=== PATIENT | female | born 1950 | race Caucasian/White ===

== ENCOUNTER 2019-11-16 16:32 | Outpatient (CLI) | payer MEDICARE, OTHER, SELFPAY ==
--- NOTE | ~2019-11-16 | CT_ITS ---
EXAMINATION: CT chest w con DATE: 11/16/2019 17:11 INDICATION: Lung cancer TECHNIQUE: Computed tomography (CT) of the chest was performed with 75 cc Omnipaque 350 intravenous c ontrast. The dose-length product was 139.51 mGy-cm. Automated exposure control and iterative reconstr uction technique were employed. COMPARISON: 05/2019 FINDINGS: There is atherosclerosis of the aorta without evidence for dissection. Heart size normal. N o significant pleural or pericardial effusion. No thoracic lymphadenopathy. There is emphysema. No en dobronchial lesions. Stable 6 x 5 mm left upper lobe nodule, image 35. Stable 5 mm left upper lobe no dule, image 44. Decreased size of left upper lobe nodule measuring 3 mm, image 74. There are reticulo nodular densities with tree-in-bud configuration in the left lower lobe. No new pulmonary nodules or masses. Mild thoracic spondylosis. IMPRESSION: 1. Stable-decreased size of left upper lobe nodules, likely treated malignancy. 2: Reticulonodular densities left lower lobe with tree-in-bud configuration, most likely infectious/i nflammatory. Reviewed, dictated and finalized at location A. LRY SALES REPRESENTATIVE IMPRESSION: 1. Stable-decreased size of left upper lobe nodules, likely treated malignancy. 2: Reticulonodular densities left lower lobe with tree-in-bud configuration, mo st likely infectious/inflammatory.
[2019-11-16 17:04] LABS: Blood Urea Nitrogen 21 mg/dL (8-26); Estimated Glomerular Filt Rate > 60
== END 2019-11-16 16:33 | disposition home or self-care (01) ==
PROVIDERS: PCP Family Medicine; Visit Provider Radiology Radiation Oncology
DX: C34.12 Malignant neoplasm of upper lobe, left bronchus or lung (principal); R91.8 Other nonspecific abnormal finding of lung field
CPT/HCPCS: 71260; Q9967

== ENCOUNTER 2019-11-27 14:21 | Outpatient (CLI) | payer MEDICARE, OTHER, SELFPAY ==
[2019-11-27 14:40] LABS: Basophils Percent Auto 0.2 % (0.2-1.2); Eosinophils Absolute Auto 0.2 K/mm3 (0-0.3); Eosinophils Percent Auto 1.2 % (0-4.4); Hemoglobin 11.2 g/dL (12.0-15.0); Immature Granulocyte Absolute 0.04 K/mm3 (0.00-0.031); Immature Granulocyte Percent A 0.3 % (0-0.5); Lymphocytes Absolute Auto 2.01 K/mm3 (0.9-3.2); Lymphocytes Percent Auto 16.1 % (18.3-44.2); Mean Corpuscular HGB Conc 31.1 g/dl (32-36); Mean Corpuscular Hemoglobin 29.6 pg (26-34); Mean Corpuscular Volume 95.2 fl (80-100); Mean Platelet Volume 9.1 fl (7.4-10.4); Monocytes Absolute Auto 0.8 K/mm3 (0.1-0.6); Monocytes Percent Auto 6.2 % (2.6-8.5); Neutrophils Absolute Auto 9.5 K/mm3 (1.3-6.7); Platelet Count Result 395 k/mm3 (150-375); Red Blood Count 3.78 M/mm3 (4.2-5.4); White Blood Count 12.5 K/mm3 (4.5-10.0)
[2019-11-27 14:44] LABS: Blood Urea Nitrogen 10 mg/dL (8-26); Carbon Dioxide 37 mmol/L (22-30); Chloride 96 mmol/L (98-109); Estimated Glomerular Filt Rate > 60; Glucose 109 mg/dL (70-105); Sodium 141 mmol/L (138-146)
[2019-11-27 16:29] LABS: CRP 1.3 mg/dL (<1.0)
[2019-11-27 16:34] LABS: Iron 55 ug/dL (37-170)
[2019-11-27 16:43] LABS: Percent Iron Saturation 19 % (20-50)
[2019-11-27 16:54] LABS: Erythrocyte Sedimentation Rate 79 mm/hr (0-20)
== END 2019-11-27 14:22 | disposition home or self-care (01) ==
PROVIDERS: Visit Provider Internal Medicine Hematology & Oncology
DX: C34.32 Malignant neoplasm of lower lobe, left bronchus or lung (principal)
CPT/HCPCS: 36415; 80048; 82607; 82728; 83540; 83550; 85025; 85652; 86140

== ENCOUNTER 2020-03-24 10:37 | Outpatient (CLI) | payer MEDICARE, OTHER, SELFPAY ==
--- NOTE | ~2020-03-24 | CT_ITS ---
EXAMINATION: CT chest w con EXAM DATE: 03/24/2020 11:07 INDICATION: Lung cancer left-sided. Follow-up. TECHNIQUE: Spiral CT of the chest following intravenous injection of 75 mL Omnipaque 350. Axial, cor onal and sagittal images were reviewed. Coronal maximum intensity pixel images of chest reviewed. T he dose-length product (DLP) for this examination was 137.96 mGy-cm. The exposure was tailored accor ding to patient size (auto mA exposure control), and iterative reconstruction (ASIR) was used as maricruz tional dose reduction technique. Comparison is made to prior examination from 11/16/2019, 05/24/2019. FINDINGS: There is moderate to severe centrilobular emphysema. Right upper lobe 6 and 5 mm nodules s table compared to 05/24/2019. There are no pleural or pericardial effusions. Tracheobronchial tree is patent. There is no mediastinal, hilar or axillary lymphadenopathy. There is no pneumothorax. Narrow cardiac silhouette from moderately hyperinflated lungs. Small thyroid nodules. There is mild coronary arterial calcification, arterial sclerosis. Upper abdomen is unremarkable. There is thora cic spondylosis without osteoblastic or osteolytic lesions identified. IMPRESSION: 1. Stable left upper lobe nodules. 2. Moderate to severe emphysema. 3. Moderate hyperinflation. Reviewed, dictated and finalized at location A.
[2020-03-24 10:59] LABS: Estimated Glomerular Filt Rate > 60
== END 2020-03-24 10:38 | disposition home or self-care (01) ==
LOC: ANHIMG 10:40
PROVIDERS: Visit Provider Internal Medicine Hematology & Oncology
DX: C34.32 Malignant neoplasm of lower lobe, left bronchus or lung (principal); R91.8 Other nonspecific abnormal finding of lung field; J43.9 Emphysema, unspecified
CPT/HCPCS: 36415; 71260; Q9967

== ENCOUNTER 2020-03-31 13:23 | Outpatient (CLI) | payer MEDICARE, OTHER, SELFPAY ==
[2020-03-31 13:44] LABS: Basophils Percent Auto 0.5 % (0.2-1.2); Eosinophils Absolute Auto 0.2 K/mm3 (0-0.3); Eosinophils Percent Auto 1.9 % (0-4.4); Hematocrit 38.5 % (37.0-47.0); Hemoglobin 12.1 g/dL (12.0-15.0); Immature Granulocyte Absolute 0.03 K/mm3 (0.00-0.031); Immature Granulocyte Percent A 0.4 % (0-0.5); Lymphocytes Absolute Auto 2.08 K/mm3 (0.9-3.2); Lymphocytes Percent Auto 24.4 % (18.3-44.2); Mean Corpuscular HGB Conc 31.4 g/dl (32-36); Mean Corpuscular Hemoglobin 29.1 pg (26-34); Mean Corpuscular Volume 92.5 fl (80-100); Mean Platelet Volume 9.7 fl (7.4-10.4); Monocytes Absolute Auto 0.6 K/mm3 (0.1-0.6); Monocytes Percent Auto 6.7 % (2.6-8.5); Neutrophils Absolute Auto 5.7 K/mm3 (1.3-6.7); Neutrophils Percent Auto 66.1 % (45.5-73.1); Platelet Count Result 302 k/mm3 (150-375); Red Blood Count 4.16 M/mm3 (4.2-5.4); Red Cell Distribution Width 13.6 % (11.5-14.5); White Blood Count 8.5 K/mm3 (4.5-10.0)
[2020-03-31 13:48] LABS: Blood Urea Nitrogen 10 mg/dL (8-26); Carbon Dioxide 34 mmol/L (22-30); Chloride 93 mmol/L (98-109); Estimated Glomerular Filt Rate > 60; Glucose 94 mg/dL (70-105); Potassium 4.3 mmol/L (3.5-4.9); Sodium 136 mmol/L (138-146)
[2020-03-31 16:39] LABS: Alanine Aminotransferase 18 U/L (4-35); Albumin Level 4.4 g/dL (3.5-5.1); Alkaline Phosphatase 107 U/L (38-126); Aspartate Amino Transferase 36 U/L (14-36); Bilirubin,Total 0.1 mg/dL (0.2-1.3); Blood Urea Nitrogen 12 mg/dL (7-17); Calcium 9.3 mg/dL (8.4-10.2); Carbon Dioxide 37 mmol/L (22-30); Chloride 93 mmol/L (98-107); Estimated Glomerular Filt Rate > 60; Glucose 96 mg/dL (65-105); Potassium 4.6 mmol/L (3.4-5.0); Sodium 134 mmol/L (137-145)
== END 2020-03-31 13:24 | disposition home or self-care (01) ==
PROVIDERS: Visit Provider Internal Medicine Hematology & Oncology
DX: C34.32 Malignant neoplasm of lower lobe, left bronchus or lung (principal)
CPT/HCPCS: 36415; 80048; 80053; 85025

== ENCOUNTER 2020-09-22 14:44 | Outpatient (CLI) | payer MEDICARE, OTHER, SELFPAY ==
--- NOTE | ~2020-09-22 | CT_ITS ---
EXAMINATION: CT chest w con DATE: 09/22/2020 15:05 INDICATION: Left lung cancer TECHNIQUE: Transaxial computed tomographic images of the chest were obtained after the administration of 75 cc of Omnipaque 350 intravenous contrast. The dose-length product (DLP) was 143.08 mGy-cm. Ite rative reconstruction was used. COMPARISON: 03/24/2020, 11/16/2019 FINDINGS: There is moderate emphysema. A stable 5 mm nodule is present in the left upper lobe on imag e 42. There is also a stable 6 mm nodule of the left upper lobe on image 35. No new pulmonary nodule is identified. There is no pleural effusion or pneumothorax. No pathologically enlarged thoracic lymp h nodes are identified. The heart size is normal. No pathologically enlarged thoracic lymph nodes are identified. The heart size is normal. There is mild thoracic spondylosis. IMPRESSION: 1. Stable left upper lobe nodules. Reviewed, dictated and finalized at location A. ECUTTER HAND
[2020-09-22 15:03] LABS: Estimated Glomerular Filt Rate > 60
== END 2020-09-22 14:45 | disposition home or self-care (01) ==
LOC: ANHIMG 14:45
PROVIDERS: Visit Provider Internal Medicine Hematology & Oncology
DX: C34.32 Malignant neoplasm of lower lobe, left bronchus or lung (principal); J43.9 Emphysema, unspecified; M47.814 Spondylosis without myelopathy or radiculopathy, thoracic region
CPT/HCPCS: 71260; Q9967

== ENCOUNTER 2020-10-01 13:22 | Outpatient (CLI) | payer MEDICARE, OTHER, SELFPAY ==
[2020-10-01 13:42] LABS: Basophils Percent Auto 0.3 % (0.2-1.2); Eosinophils Absolute Auto 0.1 K/mm3 (0-0.3); Hematocrit 40.9 % (37.0-47.0); Hemoglobin 12.5 g/dL (12.0-15.0); Immature Granulocyte Absolute 0.03 K/mm3 (0.00-0.031); Immature Granulocyte Percent A 0.3 % (0-0.5); Lymphocytes Absolute Auto 1.49 K/mm3 (0.9-3.2); Lymphocytes Percent Auto 15.4 % (18.3-44.2); Mean Corpuscular HGB Conc 30.6 g/dl (32-36); Mean Corpuscular Hemoglobin 28.3 pg (26-34); Mean Corpuscular Volume 92.7 fl (80-100); Mean Platelet Volume 9.1 fl (7.4-10.4); Monocytes Absolute Auto 0.6 K/mm3 (0.1-0.6); Monocytes Percent Auto 6.2 % (2.6-8.5); Neutrophils Absolute Auto 7.4 K/mm3 (1.3-6.7); Neutrophils Percent Auto 76.8 % (45.5-73.1); Platelet Count Result 315 k/mm3 (150-375); Red Blood Count 4.41 M/mm3 (4.2-5.4); Red Cell Distribution Width 13.3 % (11.5-14.5); White Blood Count 9.7 K/mm3 (4.5-10.0)
[2020-10-01 13:45] LABS: Blood Urea Nitrogen 13 mg/dL (8-26); Carbon Dioxide 36 mmol/L (22-30); Chloride 96 mmol/L (98-109); Estimated Glomerular Filt Rate > 60; Glucose 91 mg/dL (70-105); Potassium 4.4 mmol/L (3.5-4.9); Sodium 140 mmol/L (138-146)
[2020-10-01 16:30] LABS: Alanine Aminotransferase 18 U/L (4-35); Albumin Level 4.4 g/dL (3.5-5.1); Alkaline Phosphatase 93 U/L (38-126); Aspartate Amino Transferase 36 U/L (14-36); Bilirubin,Total 0.2 mg/dL (0.2-1.3); Blood Urea Nitrogen 13 mg/dL (7-17); Calcium 9.5 mg/dL (8.4-10.2); Carbon Dioxide > 40 mmol/L (22-30); Chloride 95 mmol/L (98-107); Estimated Glomerular Filt Rate > 60; Glucose 95 mg/dL (65-105); Potassium 4.8 mmol/L (3.4-5.0); Sodium 139 mmol/L (137-145)
[2020-10-01 16:51] LABS: Erythrocyte Sedimentation Rate 16 mm/hr (0-20)
== END 2020-10-01 13:23 | disposition home or self-care (01) ==
PROVIDERS: PCP Family Medicine; Visit Provider Internal Medicine Hematology & Oncology
DX: C34.32 Malignant neoplasm of lower lobe, left bronchus or lung (principal); D64.9 Anemia, unspecified
CPT/HCPCS: 36415; 80048; 80053; 85025; 85652

== ENCOUNTER 2021-04-01 12:20 | Outpatient (CLI) | payer MEDICARE, OTHER, SELFPAY ==
--- NOTE | ~2021-04-01 | CT_ITS ---
EXAMINATION: CT diagnostic chest w con EXAM DATE: 04/01/2021 13:26 INDICATION: Left-sided lung cancer follow-up. Shortness of breath. TECHNIQUE: Spiral CT of the chest following intravenous injection of 75 mL Omnipaque 350. Axial, cor onal and sagittal images of the chest were reviewed. Coronal maximum intensity pixel images of chest reviewed. The dose-length product (DLP) for this examination was 143.76 mGy-cm. The exposure was t ailored according to patient size (auto mA exposure control), and iterative reconstruction (ASIR) was used as additional dose reduction technique. Comparison is made to prior examination from 09/22/2020. FINDINGS: There is moderate emphysema. There is a 5 mm left upper lobe nodule on image 40, and 6 mm left upper lobe nodule on image 30, both unchanged. There is a new left lateral sulcus lower lobe mayco ewhat linear opacity probably atelectasis. The lungs are hyperinflated which can be seen with chronic obstructive pulmonary disease (a clinical diagnosis of functional impairment), but is not diagnostic of it. There are no pleural or pericardial effusions. Tracheobronchial tree is patent. There i s no mediastinal, hilar or axillary lymphadenopathy. There is no pneumothorax. Heart normal in si ze. There is mild coronary arterial calcification, arterial sclerosis. Upper abdomen is unremarkab le. There is mild thoracic spondylosis without osteoblastic or osteolytic lesions identified. IMPRESSION: 1. New left basilar opacity most likely subsegmental atelectasis but attention to this on follow-up. 2. Stable left upper lobe nodules. 3. Moderate emphysema and hyperinflation. Reviewed, dictated and finalized at location B.
[2021-04-01 13:18] LABS: Estimated Glomerular Filt Rate > 60
== END 2021-04-01 12:21 | disposition home or self-care (01) ==
LOC: ANHIMG 12:23
PROVIDERS: PCP Family Medicine; Visit Provider Internal Medicine Hematology & Oncology
DX: C34.32 Malignant neoplasm of lower lobe, left bronchus or lung (principal); J43.9 Emphysema, unspecified
CPT/HCPCS: 71260; Q9967

== ENCOUNTER 2021-04-08 13:36 | Outpatient (CLI) | payer MEDICARE, OTHER, SELFPAY ==
[2021-04-08 13:53] LABS: Basophils Percent Auto 0.4 % (0.2-1.2); Eosinophils Absolute Auto 0.1 K/mm3 (0-0.3); Eosinophils Percent Auto 0.9 % (0-4.4); Hematocrit 40.4 % (37.0-47.0); Hemoglobin 12.8 g/dL (12.0-15.0); Immature Granulocyte Absolute 0.03 K/mm3 (0.00-0.031); Immature Granulocyte Percent A 0.3 % (0-0.5); Lymphocytes Absolute Auto 1.55 K/mm3 (0.9-3.2); Lymphocytes Percent Auto 14.6 % (18.3-44.2); Mean Corpuscular HGB Conc 31.7 g/dl (32-36); Mean Corpuscular Hemoglobin 28.6 pg (26-34); Mean Corpuscular Volume 90.2 fl (80-100); Mean Platelet Volume 9.3 fl (7.4-10.4); Monocytes Absolute Auto 0.6 K/mm3 (0.1-0.6); Monocytes Percent Auto 5.7 % (2.6-8.5); Neutrophils Absolute Auto 8.3 K/mm3 (1.3-6.7); Neutrophils Percent Auto 78.1 % (45.5-73.1); Platelet Count Result 388 k/mm3 (150-375); Red Blood Count 4.48 M/mm3 (4.2-5.4); Red Cell Distribution Width 13.3 % (11.5-14.5); White Blood Count 10.6 K/mm3 (4.5-10.0)
[2021-04-08 13:57] LABS: Blood Urea Nitrogen 14 mg/dL (8-26); Carbon Dioxide 33 mmol/L (22-30); Chloride 91 mmol/L (98-109); Estimated Glomerular Filt Rate > 60; Glucose 106 mg/dL (70-105); Potassium 4.5 mmol/L (3.5-4.9); Sodium 134 mmol/L (138-146)
[2021-04-08 16:36] LABS: Alanine Aminotransferase 14 U/L (4-35); Albumin Level 4.4 g/dL (3.5-5.1); Alkaline Phosphatase 93 U/L (38-126); Anion Gap 8 mmol/L (8-16); Aspartate Amino Transferase 33 U/L (14-36); Bilirubin,Total 0.2 mg/dL (0.2-1.3); Blood Urea Nitrogen 13 mg/dL (7-17); Calcium 9.6 mg/dL (8.4-10.2); Carbon Dioxide 34 mmol/L (22-30); Chloride 93 mmol/L (98-107); Estimated Glomerular Filt Rate > 60; Glucose 104 mg/dL (65-105); Potassium 4.9 mmol/L (3.4-5.0); Sodium 135 mmol/L (137-145)
== END 2021-04-08 13:37 | disposition home or self-care (01) ==
LOC: ANHLAB 13:41
PROVIDERS: PCP Family Medicine; Visit Provider Internal Medicine Hematology & Oncology
DX: C34.32 Malignant neoplasm of lower lobe, left bronchus or lung (principal)
CPT/HCPCS: 36415; 80048; 80053; 85025

== ENCOUNTER 2021-09-18 11:08 | Outpatient (CLI) | payer MEDICARE, OTHER, SELFPAY ==
--- NOTE | ~2021-09-18 | CT_ITS ---
EXAMINATION:CT diagnostic chest w con DATE: 09/18/2021 11:45 INDICATION: Left-sided non-small cell lung cancer. TECHNIQUE: Computed tomography (CT) of the chest was performed with 75 mL Omnipaque 350 intravenous c ontrast. Automated exposure control and iterative reconstruction technique were employed. The dose-le ngth product (DLP) was 136.63 mGy-cm. COMPARISON: Chest CT 04/01/2021, 11/23/18, 09/22/20 FINDINGS: There is mild scarring at the lung apices. There is severe emphysema. There is mild atelect asis bilaterally. There is a 5 mm nodule in left upper lobe with central calcification, likely benign . There are two 3 mm nodules in left upper lobe, new from 04/01/21. There is a 5 mm nodule in left upp er lobe, stable from 11/23/18, likely benign. There is a 5 mm nodule in left lower lobe that measured 4 mm on 04/01/21 and is new from 09/22/20. There is bandlike scarring in lingula. No pleural effusion. T he heart size is normal. There are coronary artery calcifications. No pericardial effusion. There is no pulmonary embolus. There is mild thoracic spondylosis. IMPRESSION: 1. Worsened small pulmonary nodules, which may be granulomatous disease or metastatic disease. 2. Severe emphysema. Reviewed, dictated and finalized at location A. RITY FLEX OFFICER IMPRESSION: 1. Worsened small pulmonary nodules, which may be granulomatous disease or meta static disease. 2. Severe emphysema.
[2021-09-18 11:39] LABS: Estimated Glomerular Filt Rate > 60
== END 2021-09-18 11:09 | disposition home or self-care (01) ==
LOC: ANHIMG 11:11
PROVIDERS: PCP Family Medicine; Visit Provider Internal Medicine Hematology & Oncology
DX: C34.91 Malignant neoplasm of unspecified part of right bronchus or lung (principal); I25.10 Atherosclerotic heart disease of native coronary artery without angina pectoris; J43.9 Emphysema, unspecified; M47.814 Spondylosis without myelopathy or radiculopathy, thoracic region; R91.1 Solitary pulmonary nodule
CPT/HCPCS: 71260; Q9967

== ENCOUNTER 2021-12-24 10:37 | Outpatient (CLI) | payer MEDICARE, OTHER, SELFPAY ==
--- NOTE | ~2021-12-24 | CT_ITS ---
EXAMINATION: CT diagnostic chest w con EXAM DATE: 12/24/2021 11:06 INDICATION: Non-Small Cell Cancer Of Left Lung TECHNIQUE: Spiral CT of the chest following intravenous injection of 75 mL Omnipaque 350. Axial, cor onal and sagittal images of the chest were reviewed. Coronal maximum intensity pixel images of chest reviewed. The dose-length product (DLP) for this examination was 136.68 mGy-cm. The exposure was t ailored according to patient size (auto mA exposure control), and iterative reconstruction (ASIR) was used as additional dose reduction technique. Comparison is made to prior examination from 09/18/2021. FINDINGS: Previously seen 5 mm left upper lobe nodule with central calcification has decreased in si ze, now measures 4 mm. There is been interval development of ill-defined bilateral upper lobe airspac e disease likely infectious or postinfectious. Interval development of left upper lobe nodule with ce ntral cavitation measuring 12 mm. Interval development of 7 mm lingular nodule. There are no pleural or pericardial effusions. Some debris in the mainstem bronchi bilaterally. There is no mediastinal , hilar or axillary lymphadenopathy. There is no pneumothorax. Heart normal in size. There is m ild coronary arterial calcification, arterial sclerosis. There is moderate hyperinflation and severe emphysema. No central pulmonary emboli. Upper abdomen is unremarkable. There is thoracic spondylosi s without osteoblastic or osteolytic lesions identified. IMPRESSION: 1. Development of left upper lobe 12 mm cavitary nodule and lingular submillimeter nodule, indetermi loren. Recommend 3-6 month follow-up CT chest without contrast. 2. Development of small amount of ill-defined bilateral upper lobe airspace disease likely infectiou s or postinfectious scarring. 3. Decrease in size of previously seen left upper lobe nodule. 4. Severe emphysema. Moderate hyperinflation. Reviewed, dictated and finalized at location A. NG OVEN TENDER IMPRESSION: 1. Development of left upper lobe 12 mm cavitary nodule and lingular submillim eter nodule, indeterminate. Recommend 3-6 month follow-up CT chest without cont rast. 2. Development of small amount of ill-defined bilateral upper lobe airspace di sease likely infectious or postinfectious scarring. 3. Decrease in size of previously seen left upper lobe nodule. 4. Severe emphysema. Moderate hyperinflation.
[2021-12-24 11:00] LABS: Estimated Glomerular Filt Rate > 60
== END 2021-12-24 10:38 | disposition home or self-care (01) ==
PROVIDERS: PCP Family Medicine; Visit Provider Internal Medicine Hematology & Oncology
DX: C34.92 Malignant neoplasm of unspecified part of left bronchus or lung (principal); J43.9 Emphysema, unspecified
CPT/HCPCS: 71260; Q9967

== ENCOUNTER 2021-12-31 10:46 | Outpatient (CLI) | payer MEDICARE, OTHER, SELFPAY ==
[2021-12-31 11:08] LABS: Basophils Percent Auto 0.2 % (0.2-1.2); Eosinophils Absolute Auto 0.1 K/mm3 (0-0.3); Eosinophils Percent Auto 0.3 % (0-4.4); Hematocrit 43.2 % (37.0-47.0); Hemoglobin 13.4 g/dL (12.0-15.0); Immature Granulocyte Absolute 0.16 K/mm3 (0.00-0.031); Immature Granulocyte Percent A 0.8 % (0-0.5); Lymphocytes Absolute Auto 1.06 K/mm3 (0.9-3.2); Lymphocytes Percent Auto 5.6 % (18.3-44.2); Mean Corpuscular Hemoglobin 29.8 pg (26-34); Mean Corpuscular Volume 96.2 fl (80-100); Mean Platelet Volume 8.7 fl (7.4-10.4); Monocytes Absolute Auto 0.7 K/mm3 (0.1-0.6); Monocytes Percent Auto 3.8 % (2.6-8.5); Neutrophils Absolute Auto 16.8 K/mm3 (1.3-6.7); Neutrophils Percent Auto 89.3 % (45.5-73.1); Platelet Count Result 359 k/mm3 (150-375); Red Blood Count 4.49 M/mm3 (4.2-5.4); Red Cell Distribution Width 13.3 % (11.5-14.5); White Blood Count 18.9 K/mm3 (4.5-10.0)
[2021-12-31 11:12] LABS: Blood Urea Nitrogen 16 mg/dL (8-26); Carbon Dioxide 36 mmol/L (22-30); Chloride 93 mmol/L (98-109); Estimated Glomerular Filt Rate > 60; Glucose 113 mg/dL (70-105); Potassium 4.5 mmol/L (3.5-4.9); Sodium 137 mmol/L (138-146)
[2021-12-31 13:01] LABS: Alanine Aminotransferase 20 U/L (4-35); Albumin Level 4.3 g/dL (3.5-5.1); Alkaline Phosphatase 79 U/L (38-126); Anion Gap 5 mmol/L (8-16); Aspartate Amino Transferase 33 U/L (14-36); Bilirubin,Total 0.3 mg/dL (0.2-1.3); Blood Urea Nitrogen 17 mg/dL (7-17); Calcium 9.4 mg/dL (8.4-10.2); Carbon Dioxide 37 mmol/L (22-30); Chloride 94 mmol/L (98-107); Estimated Glomerular Filt Rate > 60; Glucose 113 mg/dL (65-110); Potassium 4.4 mmol/L (3.4-5.0); Sodium 136 mmol/L (137-145)
== END 2021-12-31 10:47 | disposition home or self-care (01) ==
LOC: ANHLAB 10:49
PROVIDERS: PCP Family Medicine; Visit Provider Internal Medicine Hematology & Oncology
DX: C34.92 Malignant neoplasm of unspecified part of left bronchus or lung (principal)
CPT/HCPCS: 36415; 80053; 85025

== ENCOUNTER 2022-04-06 10:27 | Outpatient (CLI) | payer MEDICARE, OTHER, SELFPAY ==
--- NOTE | ~2022-04-06 | CT_ITS ---
EXAMINATION: CT diagnostic chest wo con DATE: 04/06/2022 11:00 INDICATION: Non-small cell cancer of the left lung TECHNIQUE: Computed tomography (CT) of the chest was performed without intravenous contrast. The dose -length product (DLP) was 138.62 mGy-cm. Automated exposure control and iterative reconstruction tech [employer] were employed. COMPARISON: 12/24/2021 FINDINGS: Confluent airspace opacities have developed in the left lung apex with some foci of interna l gas identified. There are airspace opacities of the right lung apex with slight decrease. There is also a 7 mm nodule of the left upper lobe which previously measured 8 mm. The previously described ca vitary nodule of the left upper lobe is not clearly identified, possibly obscured by consolidation. T here is severe emphysema. No pleural effusion is identified. There is moderate thoracic spondylosis. IMPRESSION: 1. Findings consistent with development of cavitary pneumonia in the left upper lobe. 2. Two previously seen nodules in the right upper lobe and left upper lobe demonstrate decrease in si ze, likely infectious or inflammatory. It third cavitary nodule previously described in the left uppe r lobe is obscured by airspace opacities. 3. Severe emphysema. Reviewed, dictated and finalized at location A. IMPRESSION: 1. Findings consistent with development of cavitary pneumonia in the left upper lobe. 2. Two previously seen nodules in the right upper lobe and left upper lobe demo nstrate decrease in size, likely infectious or inflammatory. It third cavitary nodule previously described in the left upper lobe is obscured by airspace opac ities. 3. Severe emphysema.
== END 2022-04-06 10:28 | disposition home or self-care (01) ==
PROVIDERS: PCP Family Medicine; Visit Provider Internal Medicine Hematology & Oncology
DX: C34.92 Malignant neoplasm of unspecified part of left bronchus or lung (principal); J43.9 Emphysema, unspecified
CPT/HCPCS: 71250

== ENCOUNTER 2022-04-13 10:51 | Outpatient (CLI) | payer MEDICARE, OTHER, SELFPAY ==
[2022-04-13 11:12] LABS: Basophils Absolute Auto 0.1 K/mm3 (0.0-0.1); Basophils Percent Auto 0.3 % (0.2-1.2); Eosinophils Absolute Auto 0.2 K/mm3 (0-0.3); Eosinophils Percent Auto 1.1 % (0-4.4); Hematocrit 37.6 % (37.0-47.0); Hemoglobin 11.8 g/dL (12.0-15.0); Immature Granulocyte Absolute 0.12 K/mm3 (0.00-0.031); Immature Granulocyte Percent A 0.7 % (0-0.5); Lymphocytes Absolute Auto 0.73 K/mm3 (0.9-3.2); Lymphocytes Percent Auto 4.5 % (18.3-44.2); Mean Corpuscular HGB Conc 31.4 g/dl (32-36); Mean Corpuscular Hemoglobin 28.2 pg (26-34); Mean Platelet Volume 8.7 fl (7.4-10.4); Monocytes Absolute Auto 0.9 K/mm3 (0.1-0.6); Monocytes Percent Auto 5.4 % (2.6-8.5); Neutrophils Absolute Auto 14.3 K/mm3 (1.3-6.7); Platelet Count Result 481 k/mm3 (150-375); Red Blood Count 4.18 M/mm3 (4.2-5.4); Red Cell Distribution Width 13.7 % (11.5-14.5); White Blood Count 16.2 K/mm3 (4.5-10.0)
[2022-04-13 11:16] LABS: Blood Urea Nitrogen 14 mg/dL (8-26); Carbon Dioxide 35 mmol/L (22-30); Chloride 93 mmol/L (98-109); Estimated Glomerular Filt Rate > 60; Glucose 103 mg/dL (70-105); Ionized Calcium (POC) 1.23 mmol/L (1.11-1.31); Potassium 4.6 mmol/L (3.5-4.9); Sodium 135 mmol/L (138-146)
[2022-04-13 14:43] LABS: Alanine Aminotransferase 16 U/L (6-35); Albumin Level 3.8 g/dL (3.5-5.1); Alkaline Phosphatase 80 U/L (38-126); Anion Gap 4 mmol/L (8-16); Aspartate Amino Transferase 25 U/L (14-36); Bilirubin,Total 0.2 mg/dL (0.2-1.3); Blood Urea Nitrogen 16 mg/dL (7-17); Calcium 9.2 mg/dL (8.4-10.2); Carbon Dioxide 36 mmol/L (22-30); Chloride 94 mmol/L (98-107); Estimated Glomerular Filt Rate > 60; Glucose 101 mg/dL (65-110); Potassium 4.7 mmol/L (3.4-5.0); Sodium 134 mmol/L (137-145)
== END 2022-04-13 10:52 | disposition home or self-care (01) ==
LOC: ANHLAB 10:55
PROVIDERS: PCP Family Medicine; Visit Provider Internal Medicine Hematology & Oncology
DX: C34.92 Malignant neoplasm of unspecified part of left bronchus or lung (principal)
CPT/HCPCS: 36415; 80047; 80053; 85025

== ENCOUNTER 2022-08-13 11:00 | Outpatient (CLI) | payer MEDICARE, OTHER, SELFPAY ==
--- NOTE | ~2022-08-13 | CT_ITS ---
EXAMINATION:CT diagnostic chest wo con DATE: 08/13/2022 11:19 INDICATION: Non-small cell cancer of left lung. TECHNIQUE: Computed tomography (CT) of the chest was performed without intravenous contrast. Automate d exposure control and iterative reconstruction technique were employed. The dose-length product (DLP ) was 138.43 mGy-cm. COMPARISON: Chest CT 04/06/2022, 04/01/21 FINDINGS: There is severe emphysema. There is a 5 mm nodule in lingula. There are airspace opacities in the upper lobes. There is a 3 mm nodule in left lower lobe. There is a 5 mm nodule in left upper l obe. There are 3 mm and 5 mm nodules in left upper lobe. No pleural effusion. There are size is isabel l. There are coronary artery calcifications. There is a small pericardial effusion. There is mild tho racic spondylosis. IMPRESSION: 1. Airspace opacities in the upper lobes with worsening on the right and improvement on the left, con sistent with pneumonia. 2. Pulmonary nodules measuring up to 5 mm, stable from 04/06/2022 and new or worsened from 04/01/2021, consistent with metastatic disease versus granulomatous disease. 3. Severe emphysema. Reviewed, dictated and finalized at location A. IMPRESSION: 1. Airspace opacities in the upper lobes with worsening on the right and improv ement on the left, consistent with pneumonia. 2. Pulmonary nodules measuring up to 5 mm, stable from 04/06/2022 and new or wor sened from 04/01/2021, consistent with metastatic disease versus granulomatous d isease. 3. Severe emphysema.
== END 2022-08-13 11:01 | disposition home or self-care (01) ==
PROVIDERS: PCP Family Medicine; Visit Provider Internal Medicine Hematology & Oncology
DX: C34.92 Malignant neoplasm of unspecified part of left bronchus or lung (principal); R91.8 Other nonspecific abnormal finding of lung field; J43.9 Emphysema, unspecified
CPT/HCPCS: 71250

== ENCOUNTER 2022-08-17 09:34 | Outpatient (CLI) | payer MEDICARE, OTHER, SELFPAY ==
[2022-08-17 09:47] LABS: Basophils Absolute Auto 0.1 K/mm3 (0.0-0.1); Basophils Percent Auto 0.4 % (0.2-1.2); Eosinophils Absolute Auto 0.3 K/mm3 (0-0.3); Hematocrit 39.2 % (37.0-47.0); Hemoglobin 12.6 g/dL (12.0-15.0); Immature Granulocyte Absolute 0.12 K/mm3 (0.00-0.031); Lymphocytes Absolute Auto 0.99 K/mm3 (0.9-3.2); Mean Corpuscular HGB Conc 32.1 g/dl (32-36); Mean Corpuscular Hemoglobin 29.1 pg (26-34); Mean Corpuscular Volume 90.5 fl (80-100); Mean Platelet Volume 8.9 fl (7.4-10.4); Monocytes Absolute Auto 1.2 K/mm3 (0.1-0.6); Monocytes Percent Auto 9.9 % (2.6-8.5); Neutrophils Absolute Auto 9.7 K/mm3 (1.3-6.7); Neutrophils Percent Auto 78.7 % (45.5-73.1); Platelet Count Result 445 k/mm3 (150-375); Red Blood Count 4.33 M/mm3 (4.2-5.4); Red Cell Distribution Width 13.3 % (11.5-14.5); White Blood Count 12.4 K/mm3 (4.5-10.0)
[2022-08-17 10:42] LABS: Alanine Aminotransferase 20 U/L (6-35); Albumin Level 4.1 g/dL (3.5-5.1); Alkaline Phosphatase 78 U/L (38-126); Anion Gap 10 mmol/L (8-16); Aspartate Amino Transferase 33 U/L (14-36); Bilirubin,Total 0.4 mg/dL (0.2-1.3); Blood Urea Nitrogen 12 mg/dL (7-17); Calcium 9.4 mg/dL (8.4-10.2); Carbon Dioxide 35 mmol/L (22-30); Chloride 90 mmol/L (98-107); Estimated Glomerular Filt Rate > 60; Glucose 108 mg/dL (65-110); Potassium 4.1 mmol/L (3.4-5.0); Sodium 135 mmol/L (137-145)
== END 2022-08-17 09:35 | disposition home or self-care (01) ==
LOC: ANHLAB 09:36
PROVIDERS: PCP Family Medicine; Visit Provider Internal Medicine Hematology & Oncology
DX: C34.92 Malignant neoplasm of unspecified part of left bronchus or lung (principal)
CPT/HCPCS: 36415; 80053; 85025

== ENCOUNTER 2022-12-29 10:40 | Outpatient (CLI) | payer MEDICARE, OTHER, SELFPAY ==
[2022-12-29 11:00] LABS: Basophils Absolute Auto 0.1 K/mm3 (0.0-0.1); Basophils Percent Auto 0.3 % (0.2-1.2); Eosinophils Absolute Auto 0.2 K/mm3 (0-0.3); Eosinophils Percent Auto 1.1 % (0-4.4); Immature Granulocyte Percent A 0.6 % (0-0.5); Lymphocytes Absolute Auto 0.91 K/mm3 (0.9-3.2); Lymphocytes Percent Auto 5.4 % (18.3-44.2); Mean Corpuscular HGB Conc 31.6 g/dl (32-36); Mean Corpuscular Hemoglobin 26.8 pg (26-34); Mean Platelet Volume 8.7 fl (7.4-10.4); Monocytes Absolute Auto 0.9 K/mm3 (0.1-0.6); Monocytes Percent Auto 5.5 % (2.6-8.5); Neutrophils Absolute Auto 14.7 K/mm3 (1.3-6.7); Neutrophils Percent Auto 87.1 % (45.5-73.1); Platelet Count Result 391 k/mm3 (150-375); Red Blood Count 4.47 M/mm3 (4.2-5.4); Red Cell Distribution Width 16.9 % (11.5-14.5); White Blood Count 16.9 K/mm3 (4.5-10.0)
[2022-12-29 11:05] LABS: Blood Urea Nitrogen 14 mg/dL (8-26); Carbon Dioxide 38 mmol/L (22-30); Chloride 94 mmol/L (98-109); Estimated Glomerular Filt Rate > 60; Glucose 106 mg/dL (70-105); Ionized Calcium (POC) 1.26 mmol/L (1.11-1.31); Sodium 135 mmol/L (138-146)
[2022-12-29 16:33] LABS: Alanine Aminotransferase 18 U/L (6-35); Albumin Level 4.1 g/dL (3.5-5.1); Alkaline Phosphatase 94 U/L (38-126); Anion Gap 6 mmol/L (8-16); Aspartate Amino Transferase 31 U/L (14-36); Bilirubin,Total 0.4 mg/dL (0.2-1.3); Blood Urea Nitrogen 15 mg/dL (7-17); Calcium 9.8 mg/dL (8.4-10.2); Carbon Dioxide 35 mmol/L (22-30); Chloride 94 mmol/L (98-107); Estimated Glomerular Filt Rate > 60; Glucose 100 mg/dL (65-110); Sodium 135 mmol/L (137-145)
== END 2022-12-29 10:41 | disposition home or self-care (01) ==
LOC: ANHLAB 10:43
PROVIDERS: PCP Family Medicine; Visit Provider Internal Medicine Hematology & Oncology
DX: C34.92 Malignant neoplasm of unspecified part of left bronchus or lung (principal)
CPT/HCPCS: 36415; 80047; 80053; 85025

== ENCOUNTER 2023-01-11 11:50 | Outpatient (CLI) | payer MEDICARE, OTHER, SELFPAY ==
--- NOTE | ~2023-01-11 | PE_ITS ---
EXAMINATION: PET skull to mid thigh DATE: 01/11/2023 14:08 INDICATION: Non-small cell cancer of left lung. TECHNIQUE: Blood glucose level was 102 mg/dL. 10.965 mCi of 18-fluorodeoxyglucose (18-FDG) was admini stered i.v. Low dose computed tomography (CT) images were acquired from the base of the brain to the proximal thighs for attenuation correction and anatomic localization. Automated exposure control was employed. Dose-length product (DLP) was 481 mGy-cm. Positron emission tomography (PET) images were ac quired in the same distribution. COMPARISON: Chest CT 08/13/2022, 04/06/22, 09/18/21, 05/24/19, 03/24/18 FINDINGS: Head/neck: There are no pathologically enlarged lymph nodes. Chest: There is a 6.8 x 3.8 cm mass in right lung upper lobe with volume loss and maximum SUV of 13.6 . There is a 6.9 x 3.4 cm mass in left lung upper lobe with volume loss and maximum SUV of 11.2. Ther e is severe emphysema. There are a few scattered nodules in the lungs measuring up to 6 mm without in creased activity. There is a small right pleural effusion. The heart size is normal. There are lizarraga ry artery calcifications. No pericardial effusion. Abdomen/pelvis/proximal thighs: The liver, gallbladder, spleen, pancreas, adrenal glands are normal. The kidneys are normal. There are no dilated loops of bowel. There are no pathologically enlarged lym ph nodes. There is no free intraperitoneal fluid. There is no osseous malignancy. IMPRESSION: 1. Masses in the upper lobes of the lungs with worsened volume loss and increased activity, likely pn eumonia. 2. Lung nodules measuring up to 6 mm without increased activity, stable from 04/06/2022, likely benign . 3. Severe emphysema. Reviewed, dictated and finalized at location A. IMPRESSION: 1. Masses in the upper lobes of the lungs with worsened volume loss and increas ed activity, likely pneumonia. 2. Lung nodules measuring up to 6 mm without increased activity, stable from , likely benign. 3. Severe emphysema.
[2023-01-11 12:23] LABS: Glucose Point of Care 102 mg/dl (65-105)
== END 2023-01-11 11:51 | disposition home or self-care (01) ==
PROVIDERS: PCP Family Medicine; Visit Provider Internal Medicine Hematology & Oncology
DX: C34.92 Malignant neoplasm of unspecified part of left bronchus or lung (principal); J43.9 Emphysema, unspecified; R91.8 Other nonspecific abnormal finding of lung field
CPT/HCPCS: 78815; A9552

== ENCOUNTER 2023-05-13 09:50 | Outpatient (CLI) | payer MEDICARE, OTHER, SELFPAY ==
--- NOTE | ~2023-05-13 | CT_ITS ---
CT Scan of the Chest without Contrast: Clinical Indication: Non-small cell carcinoma of the left lung Technique: Contiguous sections were acquired throughout the chest without intravenous contrast. Dose reduction technique was used on this scan by utilizing automated exposure control and iterative recon struction technique. The dose-length product (DLP) was 136.85 mGy-cm. COMPARISON: 08/13/2022 Findings: There is no evidence of any significant mediastinal, hilar or axillary lymphadenopathy. The mediastin al soft tissues appear normal. There is no evidence of pleural or pericardial effusion. There is somewhat lentiform dense, somewhat masslike consolidation in the left upper lobe. There is a dditional very dense consolidation in the medial right upper lobe. Moderate to advanced emphysema pre sent. Probable focal scarring towards the lingula, unchanged. Several subcentimeter left lung nodules are unchanged. Images through the upper abdomen reveal no abnormalities. Impression: Dense areas of somewhat masslike consolidation in the left upper lobe and medial right upper lobe, as detailed above. This could reflect persistent pneumonia and/or atelectatic change, however underlyin g neoplasm cannot be excluded based on this exam. Correlate clinically. Consider continued follow-up, repeat PET/CT, or possibly tissue sampling, as indicated. Moderate to advanced emphysema. Stable subcentimeter pulmonary nodules. Reviewed, dictated and finalized at location M. Impression: Dense areas of somewhat masslike consolidation in the left upper lobe and media l right upper lobe, as detailed above. This could reflect persistent pneumonia and/or atelectatic change, however underlying neoplasm cannot be excluded based on this exam. Correlate clinically. Consider continued follow-up, repeat PET/C T, or possibly tissue sampling, as indicated. Moderate to advanced emphysema. Stable subcentimeter pulmonary nodules.
== END 2023-05-13 09:51 | disposition home or self-care (01) ==
PROVIDERS: PCP Family Medicine; Visit Provider Internal Medicine Hematology & Oncology
DX: C34.92 Malignant neoplasm of unspecified part of left bronchus or lung (principal); R91.8 Other nonspecific abnormal finding of lung field; J43.9 Emphysema, unspecified
CPT/HCPCS: 71250